=== PATIENT | female | born 1950 | race Caucasian/White ===

== ENCOUNTER 2020-09-01 19:14 | Emergency (ER) | payer OTHER ==
[~2020-09-01] VITALS: Ht 165.1 cm; Wt 68.0 kg
[2020-09-01] MEDS ORDERED: COZAAR50 MG PO (19:29)
[2020-09-01] MEDS ORDERED: LIPITOR20 MG PO (19:30)
[2020-09-01] MEDS ORDERED: INDERAL LA80 MG PO (19:30)
== END 2020-09-01 23:16 | disposition home or self-care (01) ==
LOC: ER 19:14
DX: H81.13 Benign paroxysmal vertigo, bilateral (principal); I10 Essential (primary) hypertension